=== PATIENT | male | born 1970 | race Caucasian/White ===

== ENCOUNTER 2017-12-23 23:44 | Emergency (ER) | payer SELFPAY ==
[2017-12-24] MEDS ORDERED: predniSONE 20 MG TAB PO ONE (00:16)
[2017-12-24] MEDS ORDERED: diphenhydrAMINE 25 MG CAP PO ONE (00:16)
--- NOTE | 2017-12-24 00:45 | EDPHY ---
H & P Stated Complaint: FACE FEELS THICK, SOB, WORSE SINCE 1999, THINKS ITS FROM EFFEXOR Time Seen by Provider: 12/23/17 23:58 HPI/ROS: Chief Complaint: Throat swelling, sore throat HPI: A 47-year-old male presenting with 2 days of worsening sore throat and the sensation that his throat is closing. Patient states that he has also been having some sores in his mouth. He believes this might be secondary to starting Effexor 10 days ago. He is not having any tightness in his chest. Mild throat pain but mostly has the sensation of fullness in his throat. Some mild cough which is nonproductive. No fevers or chills. No nausea or vomiting. ROS: 10 point Review of Systems is negative except as noted in the HPI. PMH: Depression Social History: No smoking, no alcohol, occasional marijuana Family History: non-contributory Physical Exam: Gen: Awake, Alert, No Distress HEENT: Nose: no rhinorrhea Eyes: PERRLA, EOMI Mouth: Moist mucosa mildly edematous oropharynx. There is angioedema of the uvula without any other focal angioedema identified, airway is patent Neck: Supple, no JVD Chest: nontender, lungs clear to auscultation Heart: S1, S2 normal, no murmur Abd: Soft, non-tender, no guarding Back: no CVA tenderness, no midline tenderness Ext: no edema, non-tender Skin: no rash Neuro: CN II-XII intact, Sensation grossly intact, Strength 5/5 in bilateral upper and lower extremities - Personal History Current Tetanus/Diphtheria Vaccine: Unsure - Medical/Surgical History Hx Asthma: No Hx Chronic Respiratory Disease: No Hx Diabetes: No Hx Cardiac Disease: No Hx Renal Disease: No Hx Cirrhosis: No Hx Alcoholism: No Hx HIV/AIDS: No Hx Splenectomy or Spleen Trauma: No Other PMH: LEFT WRIST SURG, DEPRESSION - Social History Smoking Status: Never smoked Constitutional: Initial Vital Signs Temperature (C) 36.6 C 12/23/17 23:53 Heart Rate 77 12/23/17 23:53 Respiratory Rate 18 12/23/17 23:53 Blood Pressure 125/89 H 12/23/17 23:53 O2 Sat (%) 95 12/23/17 23:53 O2 Delivery Mode Room Air Allergies/Adverse Reactions: No Known Allergies Allergy (Unverified 12/23/17 23:53) Home Medications: Medication Instructions Recorded Effexor Xr 12/23/17 Medical Decision Making ED Course/Re-evaluation: Patient has uvular angioedema, likely secondary to his of flexor. Will give him Benadryl and prednisone here. No airway impingement at this time. Will observe. Patient has not had any worsening of symptoms. I have advised him to discontinue the Effexor and speak with his physician about alternative medications. He will return for any concerns. - Data Points Medications Given: Discontinued Medications Diphenhydramine HCl (Benadryl) 50 mg PO EDNOW ONE Stop: 12/24/17 00:17 Last Admin: 12/24/17 00:20 Dose: 50 mg Prednisone (Prednisone) 60 mg PO EDNOW ONE Stop: 12/24/17 00:17 Last Admin: 12/24/17 00:20 Dose: 60 mg Departure - Departure Disposition: Home, Routine, Self-Care Clinical Impression: Uvular edema Condition: Good Instructions: Angioedema (ED) Additional Instructions: Please discontinue taking the Effexor. You may continue taking Benadryl [id number] as needed for your discomfort. Follow up with your mental health provider to discuss other options for your depression. Follow up with primary care physician in 3-4 days for further evaluation of your throat swelling. Return to the emergency depart for increasing swelling, difficulty breathing, difficulty swallowing, or any other concerns. Referrals: EDGAR DEL ANGEL [Medical Doctor] - As per Instructions
[2017-12-24 01:58] VITALS: BP 132/89; PULSE 70; RESP 20; TEMP 98.2; O2SAT 92
== END 2017-12-24 02:02 | disposition home or self-care (01) ==
DX: J39.2 Other diseases of pharynx (principal)
CPT/HCPCS: J7512

== ENCOUNTER 2018-03-19 14:29 | Emergency (ER) | payer OTHER ==
[2018-03-19] MEDS ORDERED: IBUPROFEN 600 MG TAB PO ONE (15:03)
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
[2018-03-19 15:13] VITALS: BP 135/78
== END 2018-03-19 15:13 | disposition home or self-care (01) ==
DX: S16.1XXA Strain of muscle, fascia and tendon at neck level, initial encounter (principal); V43.52XA Car driver injured in collision with other type car in traffic accident, initial encounter; Y92.410 Unspecified street and highway as the place of occurrence of the external cause; Y99.8 Other external cause status; Y93.89 Activity, other specified

== ENCOUNTER 2018-11-04 16:17 | Emergency (ER) | payer OTHER ==
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
[2018-11-04] MEDS ORDERED: TDAP ADULT 0.5 ML INJ (BOOSTRIX) IM ONE (17:08)
[2018-11-04] MEDS ORDERED: CEPHALEXIN 500 MG CAP PO ONE (17:08)
[2018-11-04 18:00] VITALS: BP 120/84
== END 2018-11-04 18:00 | disposition home or self-care (01) ==
DX: S62.663A Nondisplaced fracture of distal phalanx of left middle finger, initial encounter for closed fracture (principal); W25.XXXA Contact with sharp glass, initial encounter; Y92.230 Patient room in hospital as the place of occurrence of the external cause; Z23 Encounter for immunization

== ENCOUNTER 2018-11-05 07:24 | Inpatient (IN) | payer OTHER ==
--- NOTE | 2018-11-05 07:37 | EDPHY ---
H & P Stated Complaint: Feeling manic, hypersensitive, x2D. Denies SI/HI, seeks eval. Cooperative. Time Seen by Provider: 11/05/18 07:37 HPI/ROS: CHIEF COMPLAINT: Feeling manic HISTORY OF PRESENT ILLNESS: The patient presents to the ED with complaints of feeling manic. The patient has been struggling with depression and anxiety surrounding some significant life stressors. The patient was recently hospitalized at [facility] against his will. He felt that it was inappropriate psychiatric hospitalization. He was not started on medications at that point time. The patient is tearful and reports that he is been experiencing some hypervigilance and difficulty sleeping. The patient is very much interested in voluntary psychiatric admission. REVIEW OF SYSTEMS: A comprehensive 10 point review of systems is otherwise negative aside from elements mentioned in the history of present illness. Source: Patient Exam Limitations: No limitations - Personal History Current Tetanus/Diphtheria Vaccine: Yes - Medical/Surgical History Hx Asthma: No Hx Chronic Respiratory Disease: No Hx Diabetes: No Hx Cardiac Disease: No Hx Renal Disease: No Hx Cirrhosis: No Hx Alcoholism: No Hx HIV/AIDS: No Hx Splenectomy or Spleen Trauma: No Other PMH: LEFT WRIST SURG, DEPRESSION, ANXIETY - Social History Smoking Status: Never smoked - Physical Exam Exam: General Appearance: Alert, no distress Eyes: Pupils equal and round no pallor or injection ENT, Mouth: Mucous membranes moist Respiratory: There are no retractions, lungs are clear to auscultation Cardiovascular: Regular rate and rhythm Gastrointestinal: Abdomen is soft and nontender, no masses, bowel sounds normal Neurological: A&O, normal motor function, normal sensory exam, normal cranial nerves Skin: Warm and dry, no rashes Musculoskeletal: Neck is supple nontender Extremities: symmetrical, full range of motion Psychiatric: Anxious, tearful, endorses symptoms of depression, reports occasional suicidal thoughts but contracts for safety. Constitutional: Initial Vital Signs Temperature (C) 36.5 C 11/05/18 07:29 Heart Rate 79 11/05/18 07:29 Respiratory Rate 18 11/05/18 07:29 Blood Pressure 144/90 H 11/05/18 07:29 O2 Sat (%) 96 11/05/18 07:29 O2 Delivery Mode Room Air Allergies/Adverse Reactions: venlafaxine [From Effexor] Allergy (Verified 11/05/18 07:29) Home Medications: Medication Instructions Recorded NK [No Known Home Meds] 11/05/18 Medical Decision Making ED Course/Re-evaluation: The patient was medically cleared for psychiatric evaluation. The patient was evaluated by Mental Health. His case was discussed by the on- call psychiatrist at [facility]. The patient does not meet criteria for involuntary psychiatric hold but has been accepted for voluntary psychiatric admission at [facility] by Dr. Donaldo Garay. I have filled out the EMTALA transfer form. The patient will be transferred by private vehicle. Differential Diagnosis: Differential diagnosis considered includes suicidal ideation, homicidal ideation , psychosis, bipolar mood disorder - Data Points Medications Given: Discontinued Medications Acetaminophen (Tylenol) 1,000 mg PO EDNOW ONE Stop: 11/05/18 11:07 Last Admin: 11/05/18 11:15 Dose: 1,000 mg Cephalexin HCl (Keflex) 500 mg PO EDNOW ONE PRN Reason: Protocol Stop: 11/05/18 11:20 Last Admin: 11/05/18 11:19 Dose: 500 mg Lorazepam (Ativan) 1 mg PO EDNOW ONE Stop: 11/05/18 11:07 Last Admin: 11/05/18 11:15 Dose: 1 mg Departure - Departure Disposition: [facility] IP Clinical Impression: Depression, Hypomania, Anxiety Condition: Good Referrals: NONE *PRIMARY CARE P,. [Primary Care Provider] - As per Instructions
[2018-11-05] MEDS ORDERED: ACETAMINOPHEN 500 MG TAB PO ONE (11:06)
[2018-11-05] MEDS ORDERED: LORazepam 1 MG TAB PO ONE (11:06)
[2018-11-05] MEDS ORDERED: CEPHALEXIN 500 MG CAP PO ONE ×2 (11:17→11:19)
[2018-11-05] MEDS ORDERED: MAGNESIUM HYDROXIDE 30 ML UDCUP PO PRN (15:58)
[2018-11-05] MEDS ORDERED: NICOTINE POLACRILEX 2 MG GUM B PRN (15:58)
[2018-11-05] MEDS ORDERED: MAG HYDROX/AL HYDROX/SIMETH 30 ML UDCUP PO PRN (15:58)
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
--- NOTE | 2018-11-05 19:59 | ASMTTCLDSP ---
TLC Discharge Disposition Disposition: Answers: Admit Disposition Notes: Notes: Direct voluntary admission to 3N. Discharge Concerns/Recommendations: Notes: In consultation with [facility] ED physician, Brando Skinner MD and on-call Advanced Psychiatric Nurse practitioner, Roc Cha APN and psychiatrist, Donaldo Garay MD, all concurred that pt does not appear to meet 27-65 criteria requiring psychiatric hospitalization, however agreed to accept pt as a direct voluntary admission under Roc Cha APN. Pt was given the 3N prohibited belongings list while in the ED. Was patient given the Answers: Yes Inpatient Behavioral Health Prohibited Belongings List while in the ED? For inpatient Roc Cha APN admission, the following psychiatrist agreed to accept patient for admission to Behavioral Health ([facility]): Date Signed: 11/05/2018 07:58 PM Electronically Signed By:Deshawn Valladares
[2018-11-05] MEDS: CEPHALEXIN 500 MG CAP PO SCH (20:44)
[2018-11-06] MEDS: LORazepam 0.5 MG TAB PO PRN ×3 (00:06→20:17)
[2018-11-06] MEDS: OLANZapine DISINTEGR 10 MG TAB PO PRN ×2 (00:06→11:01)
[2018-11-06] MEDS: CEPHALEXIN 500 MG CAP PO SCH ×3 (08:21→20:17)
--- NOTE | 2018-11-06 09:07 | ASMTBHMTP ---
Master Treatment Plan Master Treatment Plan Answers: Depressed Mood without for: Suicidal Ideation Date: 11/06/2018 Diagnosis on Admission: Major Depressive Disorder, recurrent, severe 296.33 (F33.2) Expected length of stay: 3-5 Reason for admission: Notes: Pt is a 47 yo, single, employed, male with reported history of major depression and recently hypothesized Attention Deficit Disorder, presented by private vehicle on a voluntary basis to [facility] ED this morning, feeling hypo-manic and depressed, seeking voluntary inpatient admission. He is tearful, experiencing some hypervigilance and difficulty sleeping. Pt was recently hospitalized at [facility] against his will. He felt that it was an inappropriate psychiatric hospitalization. He was not started on medications at that point in time. Patient's stated presenting problems: Notes: "I'm having some difficulty with depression and anxiety". Patient's goals for treatment: Notes: "Define some baseline and develop a plan for services". Patient's strengths: Notes: "I am committed to my wellness". Identify supports outside of hospital: Notes: "I have good support system from my previous therapist and friends". Discharge criteria: Notes: SI will resolve and pt. will have a plan to safely manage recurrent SI. Initial disposition plan/considerations: Notes: Work on referrals to services in the community. Master Treatment Plan Required Signatures Psychiatrist signature: Answers: Psychiatrist: RN on-shift signature: Answers: RN: Patient signature: Answers: Patient: Date Signed: 11/06/2018 09:06 AM Electronically Signed By:Claudine Adrian
--- NOTE | 2018-11-06 09:14 | ASMTCMCOM ---
CM Note CM Note Notes: CC met with ct. to develop MTP. Ct. was pleasant and cooperative. He denied SI. Ct. reported that he needs to find providers in the community as he no longer works with therapist Ann Marie Munguia and psychiatrist Dr. Goldstein. He signed a ADOLFO for P and for [facility]. He reported that he is looking for insurance options and that he was given a phone number for [facility] to get some help regarding coverage. CC helped ct. call [facility]. Date Signed: 11/06/2018 09:12 AM Electronically Signed By:Claudine Adrian
--- NOTE | 2018-11-06 10:33 | PDMN ---
Medical Necessity Medical necessity: Pt meets inpt criteria per MD order and [id number], Major Depressive Disorder, Adult: Inpatient Care, 3 days. 47 y/o admitted w/major depressive disorder, recurrent, severe, R/O Bipolar I Disorder, current or most recent episode hypomanic, R/O ADHD, cannabis use disorder, requires inpt psychiatric hospitalization at this time.
[2018-11-06] MEDS ORDERED: SERTRALINE HCL 25 MG TAB PO ONE ×2 (11:46→14:15)
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
[2018-11-06] MEDS: IBUPROFEN 600 MG TAB PO PRN (17:25)
[2018-11-06] MEDS: ACETAMINOPHEN 325 MG TAB PO PRN (20:18)
--- NOTE | 2018-11-07 07:24 | ASMTCMCOM ---
CM Note CM Note Notes: CC checked in with ct. who reported that he is doing fine. Ct. reported that he had a good night sleep and that his mood is a little more stable. He reported that last night he spoke with a friend and that this made him somewhat upset. However, he said that he is trying "to not let this conversation color my day". Date Signed: 11/07/2018 07:23 AM Electronically Signed By:Claudine Adrian
[2018-11-07] MEDS: CEPHALEXIN 500 MG CAP PO SCH ×3 (08:36→20:53)
[2018-11-07] MEDS: LORazepam 0.5 MG TAB PO PRN ×2 (08:40→20:53)
[2018-11-07] MEDS ORDERED: SERTRALINE HCL 50 MG TAB PO SCH (09:00)
[2018-11-07] MEDS: ACETAMINOPHEN 325 MG TAB PO PRN ×2 (09:32→15:39)
[2018-11-07] MEDS: IBUPROFEN 600 MG TAB PO PRN ×2 (09:35→15:40)
--- NOTE | 2018-11-07 10:16 | ASMTCMCOM ---
CM Note CM Note Notes: Ct. engaged CC in a long conversation about his care. Ct. asked a lot of questions about inpatient care Vs. outpatient care. CC explained the difference in services and what to expect of [facility] services. Ct. is requesting referrals to PCP. Discussed that both [facility] and/or [facility] can offer PCP services. Date Signed: 11/07/2018 10:15 AM Electronically Signed By:Claudine Adrian
--- NOTE | 2018-11-07 13:39 | ASMTCMCOM ---
CM Note CM Note Notes: Summary of a meeting with ct. and his friend Irish: Irish approached this CC wanting to provide some clinical information about ct. She has known ct. and has been his friend for 25 years. She is PRODUCT BUILDER and offered the following infomation: 1. Per Irish ct. has un-diagnosed "Cycling Bipolar". Today she observed him to be agitated, restless, pressured and fidgety beyond his normal baseline. Irish is concerned that ct. current meds. would negatively affect his symptoms. 2. Per Irish ct. has been struggling to follow through with treatment. She is recommending referring ct. to "a one stop shop" where he can get comprehensive MH treatment (I.e., therapy and medications). Ct.'s last inpatient treatment was in 2015 at a [facility] hospital he agreed to sign a ADOLFO and CC will request his record. Ct. admitted to of self medicating with substances including ETOH and Cocaine. Ct. reported that he had been sober in the last two years. Date Signed: 11/07/2018 01:39 PM Electronically Signed By:Claudine Adrian
--- NOTE | 2018-11-07 15:20 | SOAPPROG ---
SOAP Progress Note Assessment/Plan: Assessment: Plan: 11/07/18 16:51 Pt gave lengthy hx of what he feels related to current situation and stressors, notably starting with abrupt end of 6yr relationship 2 yrs ago with a woman and her 2 children (became briefly tearful), which ultimately resulted in a psychiatric admission in [place], followed by an IOP, and legal charges he pled to including a protection order being placed, mentioned felony charges, felt wrongly accused by her and still feels those issues were unresolved. All charges dropped 10/30/18 after 1 year. More recently had to file bankruptcy and quit job 08/2018. Expressed his frustrations with events he felt were related to misunderstanding and miscommunication during recent hospitalization at [facility] Had psychiatrist Mary Goldstein whom he saw 3x until 09/08. Pt reports he quit seeing her after friend called her and she recommended to take pt to ER instead of trying to fit him in for an urgent appt. Later he added that another reason he quit was b/c she wouldn't refill his Adderall Rx after he missed an appt with her and told him he would have to wait until the following month. Reports he was being Rxd Cymbalta, Abilify and Adderall at that time. Friend Irish visited today and told nursing staff she was concerned about him being on Zoloft b/c has hx of bipolar. 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 MSE: cooperative with interview, nml psychom activity although talkative, incr rate, but not pressured. overinclusive. admitted to subjective sensation of racing thoughts, labile, tearful initially then full with his affect range, not depressed, mood frustrated, no overt delusions or paranoia expressed. denied any AH/VH or any SI or thoughts to harm others. A&Ox3. discussed medication options and possible bipolar spectrum d/o diagnosis. 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 admits brother took Ruthven. not sure but thinks he may have had BMD. pt denies being diagnosed with BMD or having full dom sxs in the past but admits he has been feeling "racey", and with "zinging thoughts" over last 2 days. discussed treatment options incl medications- pt agreed to d/c zoloft allowed ADOLFO for friend Irish agreed to trial lithium but has reservations about it being "heavy duty" and need for lab work as outpt and focused on being uninsured, having financial difficulties etc Objective: Vital Signs Temp Pulse Resp BP Pulse Ox 36.7 C 69 14 137/91 H 69 L 11/07/18 06:00 11/07/18 06:00 11/07/18 06:00 11/07/18 06:00 11/07/18 06:00 - Pending Discharge Pending Discharge Within 24 Hours: No Pending Discharge Within 48 Hours: No ICD10 Worksheet Patient Problems: Problems Problem Status Onset Anxiety Acute Depression Acute Hypomania Acute
[2018-11-08] MEDS: CEPHALEXIN 500 MG CAP PO SCH ×3 (08:42→22:46)
[2018-11-08] MEDS: LORazepam 0.5 MG TAB PO PRN (09:20)
--- NOTE | 2018-11-08 11:59 | SOAPPROG ---
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 Was not sleeping, difficulty falling asleep and staying asleep. Over last 2 years, was trying to focus more on EtOH sobriety but BMD-like symptoms have been worsening over past 2 yrs since not drinking. Best she has known him to be was after hospitalization in [place]. Notes in his mid-20s he impulsively used drugs EtOH, THC, cocaine, and due to flexibility of work schedule and his successes, was able to be successful financially overall at that time in his life. Denied knowing of any anxiety disorder, but +hx of depr, and depr with recent SI and insomnia with grandiosity prior to [facility] admission. Emeigh he was most stable clinically and the "best" she had seen him after his hospitalization in [place] several years ago. She reports herself and some friends are committed to supporting him through his stabilization and recovery presently. 11/08/18 14:01 on interview, pt admits incr anxiety and stress over past few mo, working 70hr/ wk, having to file bankruptcy in 08/2018, denies cocaine use since 2004 prior to CP admit, was with erratic sleep 3hr here and there, used THC to help sleep reports "escape nightmares" over last 2 nights and "zinging" thoughts, which are fast and bouncing around, awakened last night feeling anxious and stayed up when asked about his conversation with friend Irish noted above, states he was "making a joke with her, I was feeling 'racey', regarding pitching for [employer] admitted to racing thoughts presently and today which was relieved some with Ativan prn this AM, but still feeling anxious, with some agitation, irritability , perceives he is and has been talking too much and fast. over the last 2 days. denies feeling depressed presently, rather frustrated with still being in hospital and worries about things he needs to do for work. denies any AH/VH or any SI/HI, denies any other psychotic symptoms and thought processes overall linear. not tangential and with no loose associations for flight of ideas, although speech is with increased rate but not pressured, eye contact is good, pt is engaged and cooperative, affect is mildly labile ranging from bright and engaging to somewhat irritable but remaining in behavioral control and able to verbalize frustrations appropriately. A&Ox3. discussed symptoms suggestive of BMD-spectrum d/o, including concern for mixed mood sxs vs rapid cycling. Pt admitted that his brother was dxd with BMD and had been on [place] in the past. When discussing medication options and reviewing medications for BMD, pt admitted having been on Depakote with Abilify and perhaps an antidepressant and antianxiety medication during his hospitalization in [place]. "99%sure it was Depakote". PLAN: agreed to depakote trial 500mg now and 500mg at hs also medication for anxiety, will leave gabapentin 100mg tid prn available Objective: Vital Signs Temp Pulse Resp BP Pulse Ox 36.5 C 71 14 127/70 H 97 11/08/18 06:00 11/08/18 06:00 11/08/18 06:00 11/08/18 06:00 11/08/18 06:00 - Time Spent With Patient Time Spent With Patient: 35min - Pending Discharge Pending Discharge Within 24 Hours: No Pending Discharge Within 48 Hours: No ICD10 Worksheet Patient Problems: Problems Problem Status Onset Anxiety Acute Depression Acute Hypomania Acute
[2018-11-08] MEDS ORDERED: GABAPENTIN 100 MG CAP PO PRN (14:33)
[2018-11-08] MEDS ORDERED: OLANZapine 5 MG TAB PO PRN ×2 (14:41→18:51)
[2018-11-08] MEDS: DIVALPROEX ER 500 MG TAB PO SCH ×2 (14:53→15:16)
[2018-11-08] MEDS ORDERED: DIVALPROEX ER 500 MG TAB PO SCH (21:00)
[2018-11-09] MEDS: LORazepam 0.5 MG TAB PO PRN (02:24)
[2018-11-09] MEDS: CEPHALEXIN 500 MG CAP PO SCH (08:23)
--- NOTE | 2018-11-09 08:59 | ASMTBHDC ---
Notes Note: Notes: CC confirmed with Drea Donovan with [facility] of client's follow up appts. Follow up with: [facility] [address] [place], [place] [id number] [address] Appt: November 09 (11/09/18) at 2:30pm with Drea (2nd Floor). Date Signed: 11/09/2018 08:58 AM Electronically Signed By:Kendell Mccoy
[2018-11-09] MEDS: IBUPROFEN 600 MG TAB PO PRN (09:19)
[2018-11-09] MEDS: ACETAMINOPHEN 325 MG TAB PO PRN (09:20)
[2018-11-09 11:57] VITALS: BP 123/64
--- NOTE | 2018-11-09 12:47 | BDS ---
REASON FOR ADMISSION: From the ED note dated 11/05/2018, the patient presented to the emergency department with complaints of feeling manic. The patient reported recently been struggling with depression and anxiety surrounding some significant life stressors. The patient reported having fleeting thoughts about suicide. The patient reported no specific plan or intent. The patient was admitted voluntarily due to being a danger to himself. The patient was admitted for safety, crisis stabilization, and medication management. ADMITTING DIAGNOSES: 1. Major depressive disorder with anxious distress. 2. Adjustment disorder with mixed emotions. ADMISSION PHYSICAL EXAM: The patient was seen for an internal medicine consultation for a history and physical on 11/06/2018, for medical clearance for inpatient psychiatric hospitalization and treatment. The patient was medically cleared for inpatient psychiatric hospitalization and treatment. For further details, please refer to consultation note dated 11/06/2018. ADMISSION LABS: 1. CBC within normal limits except neutrophils were low at 37.9, lymphocytes were elevated at 47.3, absolute neutrophils were low at 1.66. 2. BMP within normal limits except glucose was elevated at 104. 3. Liver function within normal limits. 4. Lipid panel within normal limits except HDL cholesterol elevated at 68. 5. TSH was elevated at 5.140. 6. Toxicology screen was negative for all substances screened, negative for ethyl alcohol. MAJOR PROCEDURES OR TESTS: None. HOSPITAL COURSE: The most prominent symptoms and behaviors while the patient was here are reports of severe anxiety and severe depression. Treatment modalities utilized were milieu and group therapy. Zoloft 50 mg p.o. daily was started to target mood symptoms. The patient reported side effects from Zoloft and was discontinued. Psychotropic medication options, risks, and benefits were discussed with the patient throughout the course of the patient's hospitalization. The patient has agreed to follow up on an outpatient basis for ongoing medication evaluation. The patient has also agreed to follow up outpatient for therapy and the patient could benefit from CBT and DBT on an outpatient basis. The patient has improved considerably with no signs of psychiatric symptoms and no psychiatric symptoms expressed at time of discharge. The patient reports he has improved since admission. States to be in stable condition, feels safe to discharge and he contracts for safety. Patient's response to treatment was good. There were no adverse or unexpected results of treatment. The patient was safe throughout his stay, active in treatment, engaged in groups, and was appropriate with staff and other patients. The patient met with the treatment team prior to discharge to assess readiness to discharge and review discharge plan. The treatment team consensus is the patient is in stable condition, has a safe discharge plan, and is ready to discharge today. CONDITION AT DISCHARGE: Patient is in stable condition and is no longer a danger to self or others, and is not gravely disabled due to mental illness. Patient is no longer in need of inpatient level of care, and can be safely and effectively treated within the community. The patients level of risk at time of discharge is low. MSE: The patient is casually dressed and with good hygiene , and looks stated age. Patient is sitting, posture is upright, and position is relaxed. Patient appears awake, alert, and responds appropriately and reasonably during interview. Patient is engaged, relates well to interviewer, and emotional facial expression is appropriate to situation and changes appropriately with topic. Patient is cooperative, makes comfortable eye contact , and movements are voluntary, deliberate, coordinated, and smooth and even with no inappropriate movements. Patient makes laryngeal sounds effortlessly and shares conversation appropriately; pace of conversation is appropriate, and stream of talking is fluent; articulation is clear and understandable; word choice is effortless and appropriate for education level; completes sentences, occasionally pausing to think; rate and volume are appropriate for interview and setting. Patient reports mood as euthymic. Patients affect is stable with full variable range, congruent with mood, and appropriate to speech and circumstances. Patient has linear and logical thinking, with no loose associations, tangential thought, thought blocking, concrete thinking, or any other signs of formal thought disorder. Patient denies suicidal and homicidal ideation, and denies hallucinations and delusions. Patient appears to be a reliable historian with sound judgement and good insight into current condition. Patient has no apparent dysfunction in recent or remote memory noted , and no evidence of gross cognitive dysfunction noted at any point during the interview. DISCHARGE DIAGNOSES: 1. Major depressive disorder with anxious distress. 2. Adjustment disorder with mixed emotion. CURRENT MEDICATIONS: After reviewing options, risks, and benefits with the patient, the patient agrees to follow up on an outpatient basis for ongoing medication evaluation. Psychotropic medications are not indicated at this time. The patient was provided with a prescription of Keflex 500 mg p.o. t.i.d. to complete antibiotic course. The prescription was reviewed with the patient at time of discharge to ensure accuracy and patient understanding. DISPOSITION: The patient left hospital independently and voluntarily with his landlord and plans to follow up today at [facility] for an intake appointment at 2:30 p.m. FOLLOWUP: children's program coordinator reports the appropriate outpatient follow-up services have been established and outpatient appointments have been scheduled. The patient received written instructions with times and dates of outpatient follow-up appointments. The following follow-up recommendations were provided to the patient at discharge: Continue psychotropic medications as prescribed and attend appointments as scheduled. Report any side effects to a psychiatric outpatient provider, a primary care provider, or other health manager primary care. Address any questions or problems concerning the psychotropic medications with a psychiatric outpatient provider, a primary care provider, or other health manager primary care. Contact [facility] or [facility], or go to the nearest emergency room, if you are ever a danger to yourself/others, or unable to care for yourself. As soon as possible, establish a routine medication management treatment with a psychiatric provider, establish routine therapy appointments, and follow-up with a primary care provider. LEGAL COURSE: Patient was admitted voluntarily, remained voluntary throughout the course of his hospitalization, and patient discharged today independently and voluntarily. ATTITUDE AT TIME OF DISCHARGE: The patients attitude was positive at time of discharge, and patient reports looking forward to discharging today. The patient reports he feels safe to discharge, is no longer a danger to himself or others, is in stable condition, and contracts for safety. Patient states he will continue medications as prescribed, and establish medication management treatment with an outpatient provider after discharge. Patient reports he understands the information that has been provided to him, and he understands, accepts, and agrees to psychotropic medications. Patient describes internal protective factors as the coping skills he has learned while hospitalized here, and he plans to continue to practice these coping skills after discharge. LABS AND RADIOLOGY STUDIES: There were no pending labs or studies at time of discharge. ADVANCE DIRECTIVES: There were no advance directives on file, and patient was full code during this hospitalization. The following psychotropic medication treatment informed consent and recommendations were provided to the patient at time of discharge. Patient reports he understands, accepts, and agrees to the information that has been provided. PSYCHOTROPIC MEDICATION TREATMENT INFORMED CONSENT and RECOMMENDATIONS: Review nature of condition, diagnosis, and prognosis. Review nature and purpose of psychotropic medication treatment. Review type of psychotropic medications being prescribed. Review risk and benefits of psychotropic medication treatment. Review probable length of time will need to take medications. Review risk and benefits of not undergoing psychotropic medication treatment. Review alternative treatments to psychotropic medications. Review psychotropic medications contraindications, side effects, and importance of reporting any side effects to a psychiatric provider, primary care provider, or other health manager primary care. Review importance of asking a psychiatric provider or primary care provider any questions or problems concerning the psychotropic medications. Review safety plan and the importance to contact [facility] or [facility] , or go to the nearest emergency room, if ever a danger to yourself/others, or unable to care for yourself. Recommend upon discharge to establish routine medication management treatment with a psychiatric provider, establish routine therapy appointments, and follow-up with a primary care provider. Verify patient understands, accepts, and agrees to the information that has been provided. /[id number]/MODL MTDD
== END 2018-11-09 11:59 | disposition home or self-care (01) | DRG 881 ==
LOC: BBEH 14:20
PROVIDERS: ADMIT Registered Nurse; ATTEND Registered Nurse
DX: F32.9 Major depressive disorder, single episode, unspecified (principal); F43.23 Adjustment disorder with mixed anxiety and depressed mood; R45.851 Suicidal ideations; M79.10 Myalgia, unspecified site; F12.280 Cannabis dependence with cannabis-induced anxiety disorder; S62.613D Displaced fracture of proximal phalanx of left middle finger, subsequent encounter for fracture with routine healing; W25.XXXD Contact with sharp glass, subsequent encounter; F14.21 Cocaine dependence, in remission; Z87.81 Personal history of (healed) traumatic fracture; Z81.8 Family history of other mental and behavioral disorders